=== PATIENT | male | born 1950 | race Caucasian/White ===

== ENCOUNTER 2020-06-29 17:05 | Inpatient (IN) ==
[2020-06-29 17:56] LABS: Basophils % 0.2 %; Eosinophils # 0.1 K/mcL (0.0-0.6); Eosinophils % 0.6 %; Hematocrit 42.9 % (37.5-50.1); Hemoglobin 14.2 g/dL (12.9-16.9); Immature Granulocytes % 0.5 % (0-4); Lymphocytes # 1.3 K/mcL (0.6-4.6); Lymphocytes % 9.9 %; Mean Corpuscular HGB Conc 33.1 g/dL (31.6-35.5); Mean Corpuscular Hemoglobin 32.9 pg (28.0-33.3); Mean Corpuscular Volume 99.5 fL (83.0-100.0); Mean Platelet Volume 9.5 fL (9.4-12.4); Monocytes # 1.1 K/mcL (0.0-1.3); Monocytes % 8.3 %; Neutrophils # 10.2 K/mcL (1.6-8.9); Platelet Count 203 K/mcL (140-400); Red Blood Count 4.31 M/mcL (4.19-5.50); Red Cell Distribution Width 13.6 % (11.5-14.5); Segmented Neutrophils % 80.5 %; White Blood Count 12.7 K/mcL (4.3-11.1)
[2020-06-29 18:15] LABS: Alanine Aminotransferase 65 Units/L (7-52); Albumin 4.1 g/dL (3.5-5.7); Albumin/Globulin Ratio 0.9 (1.1-2.2); Alkaline Phosphatase 123 Units/L (34-104); Aspartate Amino Transferase 42 Units/L (13-39); BUN/Creatinine Ratio 41 (6-26); Bilirubin,Total 0.8 mg/dL (0.3-1.0); Blood Urea Nitrogen 51 mg/dL (8-23); Carbon Dioxide 28 mEq/L (23-29); Chloride 97 mEq/L (98-107); Globulin 4.6 g/dL (2.4-3.5); Glucose 127 mg/dL (70-105); Lipase 10 Units/L (11-82); Osmolality,Calculated 291 (280-300); Potassium 4.3 mEq/L (3.5-5.1); Sodium 133 mEq/L (136-145); Total Protein 8.7 g/dL (6.4-8.9); eGFR For African Americans > 60 (> 60); eGFR For Non-African Americans 57 (> 60)
[2020-06-29 18:58] LABS: Adenovirus Not Detected (Not Detect); Coronavirus 229E Not Detected (Not Detect); Coronavirus HKU1 Not Detected (Not Detect); Coronavirus NL63 Not Detected (Not Detect); Coronavirus OC43 Not Detected (Not Detect); Human Metapneumovirus Not Detected (Not Detect); Human Rhinovirus/Enterovirus Not Detected (Not Detect); Influenza A Subtype 2009 H1 Not Detected (Not Detect); Influenza B Not Detected (Not Detect); Parainfluenza Virus 1 Not Detected (Not Detect); Parainfluenza Virus 2 Not Detected (Not Detect); Parainfluenza Virus 3 Not Detected (Not Detect); SARS-CoV-2 Not Detected (Not Detect)
[2020-06-29 18:59] LABS: Bordetella Pertussis Not Detected (Not Detect); Chlamydophila pneumoniae Not Detected (Not Detect); Mycoplasma pneumoniae Not Detected (Not Detect); Parainfluenza Virus 4 Not Detected (Not Detect); Respiratory Syncytial Virus Not Detected (Not Detect)
[2020-06-29] MEDS ORDERED: Naloxone 0.4 MG/ML INJ IVP PRN (20:33)
[2020-06-29] MEDS ORDERED: 0.9 % Sodium Chloride 1,000 ML IVC SCH (20:45)
[2020-06-29] MEDS ORDERED: Prochlorperazine 10 MG/2 ML VIAL IVP PRN (21:00)
[2020-06-29] MEDS ORDERED: Haloperidol Lactate 5 MG/ML VIAL IVP ONE (23:04)
[2020-06-29] MEDS: Budesonide/Formoterol 160/4.5 1 PUFF INH IH SCH (23:34)
[2020-06-29] MEDS: Levalbuterol Neb 1.25 MG/3 ML IH SCH (23:36)
[2020-06-30] MEDS: Levalbuterol Neb 1.25 MG/3 ML IH SCH ×7 (04:58→23:48)
[2020-06-30 05:26] LABS: Hemoglobin 14.8 g/dL (12.9-16.9); Mean Corpuscular HGB Conc 32.9 g/dL (31.6-35.5); Mean Corpuscular Hemoglobin 32.5 pg (28.0-33.3); Mean Corpuscular Volume 98.9 fL (83.0-100.0); Platelet Count 211 K/mcL (140-400); Red Blood Count 4.55 M/mcL (4.19-5.50); Red Cell Distribution Width 13.9 % (11.5-14.5); White Blood Count 11.8 K/mcL (4.3-11.1)
[2020-06-30] MEDS: Levothyroxine Sodium 100 MCG VIAL IVP SCH (05:36)
[2020-06-30 05:43] LABS: BUN/Creatinine Ratio 48 (6-26); Blood Urea Nitrogen 57 mg/dL (8-23); Calcium 9.5 mg/dL (8.6-10.3); Carbon Dioxide 25 mEq/L (23-29); Chloride 97 mEq/L (98-107); Chol/HDL Ratio 3.3 (0-4.9); Cholesterol 143 mg/dL (< 200); Glucose 125 mg/dL (70-105); HDL Cholesterol 43 mg/dL (40-59); LDL Cholesterol,Calculated 69 mg/dL (< 100); Magnesium 1.9 mg/dL (1.6-2.6); Osmolality,Calculated 297 (280-300); Potassium 4.5 mEq/L (3.5-5.1); Sodium 135 mEq/L (136-145); Triglycerides 153 mg/dL (< 150); eGFR For African Americans > 60 (> 60); eGFR For Non-African Americans > 60 (> 60)
[2020-06-30 05:57] LABS: Thyroid Stimulating Hormone 0.652 mcIU/mL (0.340-5.600)
[2020-06-30 05:59] LABS: Triiodothyronine (T3) Free 3.16 pg/mL (2.50-3.90)
[2020-06-30 06:06] LABS: Hepatitis B Surface Antigen Nonreactive (Nonreactive)
[2020-06-30 06:36] LABS: Hepatitis B Core IgM Nonreactive (Nonreactive)
[2020-06-30 06:38] LABS: Hepatitis A Antibody IgM Nonreactive (Nonreactive)
[2020-06-30 07:28] LABS: Estimated Average Glucose 120 mg/dl; Hemoglobin A1C 5.8 %
[2020-06-30] MEDS ORDERED: Haloperidol Lactate 5 MG/ML VIAL IVP ONE ×2 (07:49→15:01)
[2020-06-30 08:04] LABS: Hepatitis C Virus Antibody Reactive (Nonreactive)
[2020-06-30] MEDS: Budesonide/Formoterol 160/4.5 1 PUFF INH IH SCH ×2 (08:06→20:07)
[2020-06-30] MEDS ORDERED: Haloperidol Lactate 5 MG/ML VIAL IVP PRN (15:57)
[2020-06-30] MEDS ORDERED: *HR* LORazepam 2 MG/ML VIAL IVP ONE (17:09)
[2020-06-30] MEDS: *HR* LORazepam 2 MG/ML VIAL IVP SCH (21:38)
[2020-06-30] MEDS: Haloperidol Lactate 5 MG/ML VIAL IVP SCH (21:38)
[2020-07-01 00:50] LABS: Hematocrit 38.9 % (37.5-50.1); Mean Corpuscular HGB Conc 33.9 g/dL (31.6-35.5); Mean Corpuscular Hemoglobin 33.4 pg (28.0-33.3); Mean Corpuscular Volume 98.5 fL (83.0-100.0); Mean Platelet Volume 9.4 fL (9.4-12.4); Platelet Count 171 K/mcL (140-400); Red Blood Count 3.95 M/mcL (4.19-5.50); Red Cell Distribution Width 13.8 % (11.5-14.5); White Blood Count 6.6 K/mcL (4.3-11.1)
[2020-07-01 00:55] LABS: Hemoglobin 13.2 g/dL (12.9-16.9)
[2020-07-01 01:09] LABS: BUN/Creatinine Ratio 76 (6-26); Blood Urea Nitrogen 63 mg/dL (8-23); Carbon Dioxide 29 mEq/L (23-29); Chloride 99 mEq/L (98-107); Glucose 105 mg/dL (70-105); Osmolality,Calculated 298 (280-300); Potassium 3.9 mEq/L (3.5-5.1); Sodium 135 mEq/L (136-145); eGFR For African Americans > 60 (> 60); eGFR For Non-African Americans > 60 (> 60)
[2020-07-01 01:30] LABS: Bacteria,Urine Few per hpf (None-Few); Bilirubin,Urine Negative (Negative); Blood,Urine Negative (Negative); Clarity,Urine Turbid (Clear); Color,Urine Yellow (Yellow); Glucose,Urine (UA) Normal (Normal); Hyaline Casts,Urine Few per lpf (None Seen); Ketones,Urine Negative (Negative); Leukocyte Esterase,Urine Small (Negative); Mucus,Urine Few per lpf (None-Few); Nitrite,Urine Negative (Negative); PH,Urine 5.5 pH Units (5.0-8.0); Protein,Urine 30 mg/dL (Neg-Trace); Specific Gravity,Urine 1.029 (1.010-1.025); Squamous Epithelial Cell,Urine Few per hpf (None-Few)
[2020-07-01] MEDS: Levalbuterol Neb 1.25 MG/3 ML IH SCH ×6 (03:33→23:39)
[2020-07-01] MEDS: Levothyroxine Sodium 100 MCG VIAL IVP SCH (05:51)
[2020-07-01] MEDS: Budesonide/Formoterol 160/4.5 1 PUFF INH IH SCH ×2 (07:20→19:58)
[2020-07-01] MEDS: *HR* LORazepam 2 MG/ML VIAL IVP SCH ×2 (08:19→20:36)
[2020-07-01] MEDS: Haloperidol Lactate 5 MG/ML VIAL IVP SCH (08:20)
[2020-07-01] MEDS: Nystatin POWDER 30 GM BOTTLE TP SCH ×2 (11:47→20:36)
[2020-07-01] MEDS: *HR* LORazepam 2 MG/ML VIAL IVP PRN (12:11)
[2020-07-02] MEDS: Levalbuterol Neb 1.25 MG/3 ML IH SCH ×5 (03:49→20:14)
[2020-07-02] MEDS: Levothyroxine Sodium 100 MCG VIAL IVP SCH (05:29)
[2020-07-02] MEDS: Budesonide/Formoterol 160/4.5 1 PUFF INH IH SCH ×2 (07:42→20:14)
[2020-07-02] MEDS: Nystatin POWDER 30 GM BOTTLE TP SCH ×2 (09:05→20:58)
[2020-07-02] MEDS: *HR* LORazepam 2 MG/ML VIAL IVP SCH (09:05)
[2020-07-02] MEDS: predniSONE 5 MG TABLET PO SCH (11:16)
[2020-07-02] MEDS: diazePAM 5 MG TABLET PO SCH ×2 (11:16→21:07)
[2020-07-02] MEDS: OLANZapine 10 MG TAB.RAPDIS PO SCH ×2 (11:16→21:02)
[2020-07-02] MEDS: haloperidoL 5 MG TABLET PO SCH ×2 (11:16→20:58)
[2020-07-02] MEDS: carBAMazepine 200 MG TABLET PO SCH ×2 (11:16→20:58)
[2020-07-02] MEDS: Lactulose Oral Soln 20 GM/30 ML UDC PO SCH ×2 (14:37→20:58)
[2020-07-02] MEDS: traZODone 50 MG TABLET PO SCH ×2 (20:59)
[2020-07-02] MEDS: *HR* LORazepam 2 MG/ML VIAL IVP PRN (21:08)
[2020-07-03] MEDS: Levalbuterol Neb 1.25 MG/3 ML IH SCH ×7 (00:08→23:23)
[2020-07-03] MEDS: Budesonide/Formoterol 160/4.5 1 PUFF INH IH SCH ×2 (07:34→19:48)
[2020-07-03] MEDS: hydroCHLOROthiazide 25 MG TABLET PO SCH (07:50)
[2020-07-03] MEDS: carBAMazepine 200 MG TABLET PO SCH ×2 (07:50→20:44)
[2020-07-03] MEDS: traZODone 50 MG TABLET PO SCH ×3 (07:50→20:45)
[2020-07-03] MEDS: diazePAM 5 MG TABLET PO SCH ×2 (07:50→20:44)
[2020-07-03] MEDS: lisinopriL 10 MG TABLET PO SCH (07:51)
[2020-07-03] MEDS: predniSONE 5 MG TABLET PO SCH (07:51)
[2020-07-03] MEDS: OLANZapine 10 MG TAB.RAPDIS PO SCH ×2 (07:51→20:46)
[2020-07-03] MEDS: Nystatin POWDER 30 GM BOTTLE TP SCH ×2 (07:52→20:46)
[2020-07-03] MEDS: haloperidoL 5 MG TABLET PO SCH ×2 (07:52→20:44)
[2020-07-03] MEDS: Lactulose Oral Soln 20 GM/30 ML UDC PO SCH ×3 (07:52→20:46)
[2020-07-03] MEDS ORDERED: *HR* LORazepam 2 MG/ML VIAL IM ONE (17:49)
[2020-07-04 02:32] LABS: Basophils % 0.2 %; Eosinophils # 0.1 K/mcL (0.0-0.6); Hematocrit 35.8 % (37.5-50.1); Hemoglobin 12.2 g/dL (12.9-16.9); Immature Granulocytes % 0.3 % (0-4); Lymphocytes # 1.1 K/mcL (0.6-4.6); Lymphocytes % 12.7 %; Mean Corpuscular HGB Conc 34.1 g/dL (31.6-35.5); Mean Corpuscular Volume 99.7 fL (83.0-100.0); Mean Platelet Volume 9.8 fL (9.4-12.4); Monocytes # 0.8 K/mcL (0.0-1.3); Monocytes % 8.7 %; Neutrophils # 6.9 K/mcL (1.6-8.9); Platelet Count 164 K/mcL (140-400); Red Blood Count 3.59 M/mcL (4.19-5.50); Red Cell Distribution Width 13.2 % (11.5-14.5); Segmented Neutrophils % 77.1 %; White Blood Count 8.9 K/mcL (4.3-11.1)
[2020-07-04 02:51] LABS: BUN/Creatinine Ratio 38 (6-26); Blood Urea Nitrogen 24 mg/dL (8-23); Calcium 9.2 mg/dL (8.6-10.3); Carbon Dioxide 28 mEq/L (23-29); Chloride 100 mEq/L (98-107); Glucose 141 mg/dL (70-105); Magnesium 1.8 mg/dL (1.6-2.6); Osmolality,Calculated 286 (280-300); Potassium 3.3 mEq/L (3.5-5.1); Sodium 135 mEq/L (136-145); eGFR For African Americans > 60 (> 60); eGFR For Non-African Americans > 60 (> 60)
[2020-07-04] MEDS: Levalbuterol Neb 1.25 MG/3 ML IH SCH ×3 (03:38→11:17)
[2020-07-04] MEDS: Budesonide/Formoterol 160/4.5 1 PUFF INH IH SCH (07:40)
[2020-07-04] MEDS ORDERED: Sulfamethoxazole/Trimeth DS 1 EACH TABLET PO SCH (09:00)
[2020-07-04] MEDS: carBAMazepine 200 MG TABLET PO SCH (09:23)
[2020-07-04] MEDS: hydroCHLOROthiazide 25 MG TABLET PO SCH (09:23)
[2020-07-04] MEDS: diazePAM 5 MG TABLET PO SCH (09:24)
[2020-07-04] MEDS: predniSONE 5 MG TABLET PO SCH (09:24)
[2020-07-04] MEDS: haloperidoL 5 MG TABLET PO SCH (09:24)
[2020-07-04] MEDS: traZODone 50 MG TABLET PO SCH (09:25)
[2020-07-04] MEDS: lisinopriL 10 MG TABLET PO SCH (09:25)
[2020-07-04] MEDS: OLANZapine 10 MG TAB.RAPDIS PO SCH (09:35)
[2020-07-04] MEDS: Nystatin POWDER 30 GM BOTTLE TP SCH (09:37)
[2020-07-04] MEDS: Lactulose Oral Soln 20 GM/30 ML UDC PO SCH (09:37)
[2020-07-04 11:07] VITALS: BP 109/73
[2020-07-04 13:20] LABS: Influenza A PCR Negative (Negative); Influenza B PCR Negative (Negative); Resp. Syncytial Virus PCR Negative (Negative)
[2020-07-04 14:15] LABS: SARS-CoV-2 by PCR (In House) Negative (Negative)
[2020-07-04] MEDS ORDERED: Nitrofurantoin (BID) 100 MG CAPSULE PO SCH (17:00)
== END 2020-07-04 14:58 | DRG 388 ==
LOC: 3ANU 17:05 → EMEROOARM 17:05 → SUATTDRO 20:36 → 3ANU 21:16 → SUATTDRO 06-30 16:55
PROVIDERS: ADMIT Student in an Organized Health Care Education/Training Program; ATTEND Internal Medicine